=== PATIENT | male | born 1965 | race Caucasian/White ===

== ENCOUNTER 2017-05-24 05:31 | Day surgery (SDC) | payer OTHER ==
[2017-05-15 14:46] VITALS: BMI 28.8
--- NOTE | 2017-05-24 09:16 | HP ---
Satellite [facility] - Chief Complaint Chief Complaint: left shoulder pain - Past Medical History Allergies/Adverse Reactions: Allergies Allergy/AdvReac Type Severity Reaction Status Date / Time No Known Drug Allergies Allergy Verified 11/11/15 07:43 - Current Medications Current Medications: Home Medications Medication Instructions Recorded Montelukast Na [Singulair -] 10 mg PO HS PRN 11/10/15 Oxycodone HCl/Acetaminophen 1 - 2 tab PO Q6H #50 tab MDD 8 05/24/17 [Percocet 5-325 mg Tablet] Satellite Physical Exam - Physical Examination General Appearance: Well Nourished, Well Developed, Alert & Oriented x3 ENT: Clear Lung: Normal air movement Heart: Regular rate & rhythm Extremities: Other (left shoulder- + ttp, decr rom, + empty can, + neer, + munoz, nvi MRI + rct) Neurological: Intact, Alert, Oriented Satellite Impression/Plan - Impression/Plan Impression: left shoulder rct Operative Procedure: left shoulder arthroscopy with RCR, SAD Date to be Performed: 05/24/17
[2017-05-24] MEDS ORDERED: DEXAMETHASONE SOD PHOSPHATE/PF 10 MG/ML SDV ONE (10:26)
[2017-05-24] MEDS ORDERED: BUPIVACAINE HCL/PF 0.5% (5MG/ML) 10 ML VIAL ONE (10:26)
[2017-05-24] MEDS ORDERED: MIDAZOLAM HCL 2 MG/2 ML SINGLE DOSE VIAL ONE ×2 (10:28)
[2017-05-24] MEDS ORDERED: oxyCODONE HCL 5 MG TABLET PO PRN (11:04)
[2017-05-24] MEDS ORDERED: ONDANSETRON 4 MG/2 ML VIAL IVPUSH PRN (11:04)
[2017-05-24] MEDS ORDERED: LACTATED RINGERS SOLUTION 1,000 ML IV SCH (11:15)
[2017-05-24] MEDS ORDERED: ROCURONIUM BROMIDE 50 MG/5 ML VIAL ONE (11:22)
[2017-05-24] MEDS ORDERED: PROPOFOL 20 ML ONE ×2 (11:22→11:49)
[2017-05-24] MEDS ORDERED: ceFAZolin SODIUM 1 GM VIAL IVPB ONE (11:27)
[2017-05-24] MEDS ORDERED: NEOSTIGMINE METHYLSULFATE 0.5 MG/ML - 10 ML MDV ONE (12:05)
[2017-05-24] MEDS ORDERED: LIDOCAINE HCL/PF 2% SDV 5ML VIAL ONE (12:06)
[2017-05-24] MEDS ORDERED: ceFAZolin SODIUM 1 GM VIAL ONE (12:06)
[2017-05-24] MEDS ORDERED: GLYCOPYRROLATE 0.2 MG/1 ML VIAL ONE (12:06)
[2017-05-24] MEDS ORDERED: SODIUM CHLORIDE 0.9% P/F 10 ML VIAL IJ ONE (12:06)
[2017-05-24] MEDS ORDERED: DEXAMETHASONE SOD PHOSPHATE 4 MG/1 ML VIAL ONE (12:06)
[2017-05-24] MEDS ORDERED: LIDOCAINE HCL 2% JELLY (5 ML/TUBE) ONE (12:06)
--- NOTE | 2017-05-24 12:13 | OP ---
Operative Note - Note: Operative Date: 05/24/17 [place] Pre-Operative Diagnosis: left shoulder rct Operation: left shoulder arthroscopy with RCR, SAD Implants: 2 arthrex swivelocks Post-Operative Diagnosis: Same as Pre-op Surgeon: Martin Brewer Bisque Ware Dipper: Jw Love Anesthesiologist/CAVALRY SCOUT: Angélica Larios MD Anesthesia: General, Local Specimens Removed: shavings Estimated Blood Loss (mls): 5 Operative Report Dictated: Yes
--- NOTE | 2017-05-24 13:10 | OP ---
DATE OF OPERATION: 05/24/2017 PREOPERATIVE DIAGNOSIS: Left rotator cuff tear. POSTOPERATIVE DIAGNOSIS: Left rotator cuff tear. PROCEDURE: Arthroscopy left shoulder, debridement subacromial space, and rotator cuff repair. SURGICAL ATTENDING: Martin Brewer MD DELIVERY CREW WORKER: JAYDA Garcia ANESTHESIA: Regional and general. CLOSURE: Two SutureTape with 2 SwiveLoc anchors for rotator cuff and 3-0 nylon for skin. ESTIMATED BLOOD LOSS: Negligible. COMPLICATIONS: None. CONDITION: To the recovery room in stable condition. DESCRIPTION OF PROCEDURE: The patient was taken to the operating room on May 24, 2017. Regional and general anesthesia was administered by the anesthesiologist. IV Kefzol was administered prophylactically prior to the case. The patient was placed in the beach chair position with all prominences well padded. The left shoulder area was prepped and draped in the usual sterile fashion. First, a diagnostic arthroscopy of the glenohumeral joint was performed. Posterior portal was made 2 fingerbreadths below the acromion with a 15 blade followed by a blunt trocar. The scope was placed in the shoulder, which revealed the following: Intact glenoid humeral head articular cartilage, intact labrum circumferentially, intact biceps and biceps anchor, intact subscapularis through its insertion. Looking superiorly at the rotator cuff, there was a crescent tear of the supraspinatus. The rest of the rotator cuff appeared to be intact. The fluid was drained from the shoulder, and the trocar was removed. The posterior trocar was redirected in the subacromial space. An accessory lateral portal was made with a 15 blade followed by a blunt trocar. There was encounter of fibrous tissue in the subacromial space. This was debrided using the ArthroCare and a shaver. The coracoid acromial ligament was identified and detached off the anterior acromion and it was further debrided. The undersurface of the bone of the acromion was debrided using acromion burred up to the appropriate level giving sufficient height for the rotator cuff. This was done from laterally all the way to the AC joint. Soft tissue encasing the humeral head was debrided using ArthroCare and a shaver exposing the rotator cuff tear beneath. The area on the greater tuberosity was debrided exposing some healthy, bleeding bone for rotator cuff re-implantation. SutureTape was placed in mattress formation using the Scorpio device exiting the lateral portal. Traction on this revealed easily able to reach from the rotator cuff tendon to the greater tuberosity. One was anterior and one was posterior. Each one was fixated with a SwiveLoc anchor back to the greater tuberosity pulling the tendon down. Probing revealed excellent fixation as did range of motion revealing good clearance in the subacromial space and stability of the repair. The shoulder was irrigated and drained. The portals were closed with 3-0 nylon, sterile pressure dressing followed by a shoulder immobilizer was applied. The patient was awoken from anesthesia and transferred to recovery room in stable condition. No complications. Estimated blood loss negligible. Ree [id number]
[2017-05-24 15:14] VITALS: BP 140/81; PULSE 86; TEMP 98.1
--- NOTE | 2017-05-27 11:33 | PATH ---
Surgical Pathology Report Patient Name: CATE CORDOBA Med. Rec. #: [id number] /Age/Gender: 1965 (Age: 52) / M Account: [id number] Location: [facility] SURGICAL Taken: 05/24/2017 Received: 05/24/2017 Reported: 05/27/2017 Physicians: Martin Brewer M.D. Specimen(s) Received LEFT SHOULDER SHAVINGS Clinical History Tear left shoulder Final Diagnosis LEFT SHOULDER, ARTHROSCOPIC SHAVING: PORTIONS OF SYNOVIUM, CARTILAGE, SKELETAL MUSCLE AND BONE CONSISTENT WITH ARTHROSCOPIC SHAVINGS. Electronically Signed Ham Spain M.D. Gross Description Received in formalin, labeled "left shoulder shavings," is a 3.8 x 2.8 x 0.3 cm. aggregate of parish-yellow soft tissue fragments. A registration representative portion is submitted in one cassette. /05/24/201705/24/2017
== END 2017-05-24 15:20 | disposition home or self-care (01) ==
LOC: JASU-SURG 05:31
PROVIDERS: ATTEND Orthopaedic Surgery
PROC: 0RNK4ZZ Release Left Shoulder Joint, Percutaneous Endoscopic Approach (ICD-10-PCS; 2017-05-24)
PROC: 0LQ24ZZ Repair Left Shoulder Tendon, Percutaneous Endoscopic Approach (ICD-10-PCS; principal; 2017-05-24 11:00)
DX: M75.102 Unspecified rotator cuff tear or rupture of left shoulder, not specified as traumatic (principal)
CPT/HCPCS: 88304-TC; 94760

== ENCOUNTER 2017-12-25 05:17 | Day surgery (SDC) | payer OTHER ==
[2017-12-24 12:08] VITALS: BMI 30.8
[2017-12-25] MEDS ORDERED: MIDAZOLAM HCL 2 MG/2 ML SINGLE DOSE VIAL ONE (09:07)
[2017-12-25] MEDS ORDERED: DEXAMETHASONE SOD PHOSPHATE/PF 10 MG/ML SDV ONE (09:09)
[2017-12-25] MEDS ORDERED: BUPIVACAINE HCL/PF 0.5% (5MG/ML) 10 ML VIAL ONE (09:09)
--- NOTE | 2017-12-25 10:12 | HP ---
Satellite [facility] - Chief Complaint Chief Complaint: left elbow pain, weakness History of Present Illness: left elbow lateral epicondylitis History Source: Patient Limitations to Obtaining History: No Limitations - Past Medical History Allergies/Adverse Reactions: Allergies Allergy/AdvReac Type Severity Reaction Status Date / Time No Known Drug Allergies Allergy Verified 12/25/17 08:44 - Current Medications Current Medications: Home Medications Medication Instructions Recorded Montelukast Na [Singulair -] 10 mg PO HS PRN 11/10/15 Oxycodone HCl/Acetaminophen 1 - 2 tab PO Q6H #50 tab MDD 8 05/24/17 [Percocet 5-325 mg Tablet] Satellite Physical Exam - Physical Examination Vital Signs: Vital Signs Period Temp Pulse Resp BP Sys/Daniels Pulse Ox Last 24 Hr 98.0 F-98.0 F 68-68 20-20 125-125/85-85 96 General Appearance: Well Nourished ENT: Clear Lung: Clear to auscultation Heart: Regular rate & rhythm Breasts: Soft Abdomen: Soft Extremities: No edema Satellite Impression/Plan - Impression/Plan Impression: left elbow lateral epicondylitis Operative Procedure: left elbow lateral epicondylectomy, repair of ECRB tendon Date to be Performed: 12/25/17
[2017-12-25] MEDS ORDERED: oxyCODONE HCL 5 MG TABLET PO PRN (10:14)
[2017-12-25] MEDS ORDERED: ONDANSETRON 4 MG/2 ML VIAL IVPUSH PRN (10:14)
[2017-12-25] MEDS ORDERED: LACTATED RINGERS SOLUTION 1,000 ML IV SCH (10:15)
[2017-12-25] MEDS ORDERED: PROPOFOL 20 ML ONE (10:20)
[2017-12-25] MEDS ORDERED: ceFAZolin SODIUM 1 GM VIAL ONE (10:53)
[2017-12-25] MEDS ORDERED: ceFAZolin SODIUM 1 GM VIAL IVPB ONE (11:15)
--- NOTE | 2017-12-25 11:58 | OP ---
Operative Note - Note: Operative Date: 12/25/17 ([facility]) Pre-Operative Diagnosis: left lateral epicondylitis, ECRB tear Operation: left elbow lateral epicondylectomy, ECRB repair Post-Operative Diagnosis: Same as Pre-op Surgeon: Irineo Mcqueen Supervisor Wheel Shop: Jw Love Anesthesiologist/RAIL CAR UNLOADER: Renee Mcknight Anesthesia: Local, MAC Estimated Blood Loss (mls): 0 (tourniquet) Operative Report Dictated: Yes
[2017-12-25 13:20] VITALS: TEMP 98
--- NOTE | 2017-12-25 14:07 | SPEC ---
DATE OF OPERATION: 12/25/2017 PREOPERATIVE DIAGNOSIS: Left elbow lateral epicondylitis and tear of extensor carpi radialis brevis tendon. POSTOPERATIVE DIAGNOSIS: Left elbow lateral epicondylitis and tear of extensor carpi radialis brevis tendon. PROCEDURE: Left elbow epicondylectomy and repair of ECRB tendon. SURGEON: Irineo Mcqueen MD PRESS OFFBEARER: JAYDA Garcia DRAINS: None. COMPLICATIONS: None. ANESTHESIOLOGIST: Renee Mcknight CRNA ANESTHESIA: Left interscalene block and MAC anesthesia. BLOOD LOSS: None. BLOOD GIVEN: None. SPECIMEN: None. FLUID REPLACEMENT: 700 mL. INDICATION: This patient is a 52-year-old male with preoperative diagnosis of an recurrent severe left elbow lateral epicondylitis. After understanding the potential risk, complications, alternatives, and benefits of surgical versus nonsurgical treatment, the patient elected to undergo this procedure. DESCRIPTION OF PROCEDURE: The patient was brought into the operating room, peripheral IV placed and IV sedation given. A right intrascalene block performed, LMA anesthesia induced. Patient was given 1 gram of IV Ancef. A tourniquet applied to the arm. The upper extremity was prepped and draped in a sterile fashion, elevated and exsanguinated with an Esmarch bandage and tourniquet inflated to 250 mg of mercury. The entire case was done under 3.8 loupe magnification. A No. 15 scalpel blade was utilized to cut into the skin in a curvilinear fashion over the lateral epicondyle. Subcutaneous hemostasis was achieved with the bipolar cautery. Metzenbaum scissors were used to cut through the superficial fascia, exposing the lateral epicondyle, the origin of the ECRB. Under direct visualization three longitudinal slits were made within the periosteum of the lateral epicondyle as well as along the fibers of the ECRB with a No. 15 scalpel blade. First starting in the most anterior slit, using a combination of a fresh No. 15 scalpel blade and a rongeur, I was able to identify and removed chronic inflammatory degenerating tissue. This slightly grayish yellowish tissue was passed off the field with specimen, soft tissue lateral epicondyle left elbow. Next a curet was used to scrape the tendon in the area of the abnormalities as well as mildly decorticate the lateral epicondyle. The area was copiously irrigated and washed out, inspected. All abnormal tissue was seen to be removed from this area and therefore a 1.1 mm drill bit was used to drill multiple holes within the lateral epicondyle. The same sequence of events was carried out in the middle slit and the posterior most slit combining all the tissue specimen. Multiple drill holes were again drilled in the lateral epicondyle after mild decortication with a curet and rongeur. The area was copiously irrigated and washed out, additional inspection performed. I didnt see any other abnormal tissue and therefore closure was begun. A 2-0 Vicryl suture was used to close the longitudinal split in the ECRB tendon. No eze tear of the ECRB was identified. It was just a degenerative process. The area was copiously irrigated and washed out. The fascia was closed with 4-0 undyed Vicryl over the repair. The deep dermal layer was closed with 4-0 undyed Vicryl. Final skin approximation was done with subcuticular running 4-0 V-loc suture. The area was then washed and dried and covered with Steri-Strips, 4 x 4s, Webril and a posterior fiber glass splint was applied, the elbow in neutral and the wrist mobilized as well. This was wrapped in two Akshat bandages. The tourniquet was taken down after a total tourniquet time of approximately 45 minutes. There were no complications during the case. The patient tolerated the procedure quite well and was brought to the ambulatory recovery room in stable condition. Ree [id number]
[2017-12-25 14:57] VITALS: BP 128/80; PULSE 84
== END 2017-12-25 14:58 | disposition home or self-care (01) ==
LOC: JASU-SURG 05:17
PROVIDERS: ATTEND Orthopaedic Surgery
PROC: 0PBG0ZZ Excision of Left Humeral Shaft, Open Approach (ICD-10-PCS; 2017-12-25)
PROC: 0LQ60ZZ Repair Left Lower Arm and Wrist Tendon, Open Approach (ICD-10-PCS; principal; 2017-12-25 09:30)
DX: M77.12 Lateral epicondylitis, left elbow (principal); S56.512A Strain of other extensor muscle, fascia and tendon at forearm level, left arm, initial encounter; X58.XXXA Exposure to other specified factors, initial encounter; Y93.9 Activity, unspecified; Y92.9 Unspecified place or not applicable
CPT/HCPCS: 94760

== ENCOUNTER 2020-11-08 12:53 | Emergency (ER) | payer OTHER ==
[2020-11-08 13:34] VITALS: TEMP 98; BMI 30.9
[2020-11-08] MEDS ORDERED: ACETAMINOPHEN 1000 MG/100 ML VIAL (NON FORMULARY) IVPB ONE (13:34)
[2020-11-08] MEDS ORDERED: LIDOCAINE 5% TOPICAL PATCH TP ONE (13:34)
[2020-11-08] MEDS ORDERED: LIDOCAINE 5% TOPICAL PATCH ONE (13:40)
[2020-11-08] MEDS ORDERED: ACETAMINOPHEN INJECTION 100 ML IVPB ONE (13:40)
[2020-11-08] MEDS ORDERED: diazePAM 5 MG TABLET PO ONE ×2 (13:45→15:56)
[2020-11-08] MEDS ORDERED: KETOROLAC TROMETHAMINE 15 MG/ML VIAL IM ONE (13:45)
[2020-11-08 13:46] LABS: BASO % 0.5 % (0-2.0); EOS % 1.3 % (0-4.5); HEMATOCRIT 38.2 % (35.4-49); HEMOGLOBIN 13.6 GM/dL (11.7-16.9); MCH 31.9 pg (25.7-33.7); MCHC 35.6 g/dl (32.0-35.9); MEAN CELL VOLUME 89.7 fl (80-96); MEAN PLT VOLUME 8.9 fl (7.5-11.1); MONO % 7.1 % (3.8-10.2); NEUT % 67.1 % (42.8-82.8); PLATELET COUNT 295 10^3/uL (134-434); RBC 4.26 M/mm3 (4.00-5.60); WHITE BLOOD COUNT 10.6 K/mm3 (4.0-10.0)
[2020-11-08 14:03] LABS: CHLORIDE 106 mmol/L (98-107); SODIUM 140 mmol/L (136-145)
[2020-11-08 14:04] LABS: CALCIUM 8.8 mg/dL (8.5-10.1)
[2020-11-08 14:05] LABS: ALBUMIN 3.5 g/dl (3.4-5.0); BLOOD UREA NITROGEN 18.7 mg/dL (7-18); GLUCOSE,RANDOM 221 mg/dL (74-106)
[2020-11-08 14:06] LABS: ANION GAP 5 MMOL/L (8-16); CO2 28 mmol/L (21-32)
[2020-11-08 14:08] LABS: CREATININE 0.8 mg/dL (0.55-1.3)
[2020-11-08 14:10] LABS: BILIRUBIN,TOTAL 0.6 mg/dL (0.2-1); SGPT/ALT 49 U/L (13-61); TOT PROT 6.9 g/dl (6.4-8.2)
[2020-11-08 14:11] LABS: ALK PHOS 103 U/L (45-117)
[2020-11-08] MEDS ORDERED: diazePAM 5 MG TABLET ONE ×2 (14:11→16:18)
[2020-11-08] MEDS ORDERED: KETOROLAC TROMETHAMINE 15 MG/ML VIAL ONE (14:11)
[2020-11-08 14:18] LABS: SGOT/AST 24 U/L (15-37)
[2020-11-08 16:54] VITALS: BP 116/80; PULSE 64
[2020-11-08] MEDS ORDERED: LIDOCAINE PATCH REMOVAL MC SCH (22:00)
== END 2020-11-08 18:22 | disposition home or self-care (01) ==
LOC: JER 12:53
PROC: 3E0333Z Introduction of Anti-inflammatory into Peripheral Vein, Percutaneous Approach (ICD-10-PCS; principal; 2020-11-08)
PROC: 3E0233Z Introduction of Anti-inflammatory into Muscle, Percutaneous Approach (ICD-10-PCS; 2020-11-08)
DX: S16.1XXA Strain of muscle, fascia and tendon at neck level, initial encounter (principal); S46.912A Strain of unspecified muscle, fascia and tendon at shoulder and upper arm level, left arm, initial encounter; X50.0XXA Overexertion from strenuous movement or load, initial encounter
CPT/HCPCS: 36415; 71045-TC-FY; 80053; 82550; 84484; 85025; 93005; 93010; 96372; 96374; 99285-25; J0131

== ENCOUNTER 2021-05-24 19:04 | Emergency (ER) | payer OTHER ==
[2021-05-24 19:45] VITALS: BP 156/82; PULSE 75; TEMP 97.8; BMI 30.9
[2021-05-24] MEDS ORDERED: MECLIZINE HCL 25 MG TABLET (FP) PO ONE (21:02)
[2021-05-24] MEDS ORDERED: LIDOCAINE 5% TOPICAL PATCH TP ONE (21:07)
[2021-05-24] MEDS ORDERED: MECLIZINE HCL 25 MG TABLET (FP) ONE (21:21)
[2021-05-24] MEDS ORDERED: LIDOCAINE 5% TOPICAL PATCH ONE (21:21)
[2021-05-24 21:32] LABS: PH,URINE 5.5 (5.0-8.0); URINE APPEARANCE CLEAR; URINE BILIRUBIN NEGATIVE (NEGATIVE); URINE COLOR YELLOW; URINE GLUCOSE (UA) TRACE (NEGATIVE); URINE KETONE TRACE (NEGATIVE); URINE LEUK ESTERASE NEGATIVE (NEGATIVE); URINE NITRITE NEGATIVE (NEGATIVE); URINE PROTEIN TRACE (NEGATIVE)
[2021-05-24 21:58] LABS: BASO % 1.2 % (0-2.0); HEMATOCRIT 40.1 % (35.4-49); HEMOGLOBIN 14.2 GM/dL (11.7-16.9); MCH 31.5 pg (25.7-33.7); MCHC 35.3 g/dl (32.0-35.9); MEAN CELL VOLUME 89.1 fl (80-96); MONO % 7.5 % (3.8-10.2); NEUT % 54.3 % (42.8-82.8); PLATELET COUNT 260 10^3/uL (134-434); RDW 12.8 % (11.9-15.9); WHITE BLOOD COUNT 7.2 K/mm3 (4.0-10.0)
[2021-05-24] MEDS ORDERED: LIDOCAINE PATCH REMOVAL MC ONE (22:00)
[2021-05-24 22:19] LABS: CALCIUM 8.7 mg/dL (8.5-10.1)
[2021-05-24 22:20] LABS: ALBUMIN 3.9 g/dl (3.4-5.0)
[2021-05-24 22:23] LABS: CREATININE 0.9 mg/dL (0.55-1.3)
[2021-05-24 22:27] LABS: BILIRUBIN,TOTAL 0.5 mg/dL (0.2-1); BLOOD UREA NITROGEN 12.7 mg/dL (7-18); TOT PROT 7.3 g/dl (6.4-8.2)
== END 2021-05-25 00:13 | disposition home or self-care (01) ==
LOC: JER 19:04 → JERFT 19:04 → JER 05-25 00:13
DX: R42 Dizziness and giddiness (principal); M54.41 Lumbago with sciatica, right side
CPT/HCPCS: 36415; 70450-TC; 71046-TC-FY; 80053; 81003; 84484; 85025; 87086; 87491; 87591; 93005; 93010; 99285-25

== ENCOUNTER 2021-12-27 08:48 | Emergency (ER) | payer OTHER ==
[2021-12-27 08:58] VITALS: BP 157/97; PULSE 92; RESP 16; TEMP 98.1; BMI 29.9
[2021-12-27] MEDS ORDERED: KETOROLAC TROMETHAMINE 60 MG/2 ML VIAL IM ONE (09:25)
[2021-12-27] MEDS ORDERED: KETOROLAC TROMETHAMINE 30 MG/1 ML VIAL ONE (09:33)
== END 2021-12-27 10:05 | disposition home or self-care (01) ==
LOC: JERFT 08:48
PROC: 3E023GC Introduction of Other Therapeutic Substance into Muscle, Percutaneous Approach (ICD-10-PCS; principal; 2021-12-27)
DX: M25.521 Pain in right elbow (principal)
CPT/HCPCS: 99284-25